=== PATIENT | female | born 1980 | race Caucasian/White ===

== ENCOUNTER 2022-03-21 12:39 | Outpatient (CLI) | payer BC, SELFPAY ==
--- NOTE | 2022-03-21 13:00 | CRLHL7_ITS ---
For Patients: As a result of the Century Cures Act, medical imaging exams and procedure reports are released immediately into your electronic medical record. You may view this report before your referring provider. If you have questions, please contact your health care provider. INDICATION: Pelvic pain, uterine fibroids. TECHNIQUE: Ultrasound pelvis transvaginal for better assessment or to better visualize the endometrium. Real-time sonographic images with grayscale and color Doppler images. COMPARISON: None. FINDINGS: Uterus: 8.4 x 7.0 x 5.5 cm cm. Normal echotexture of the myometrium. Superior anterior right subserosal uterine mass measuring 2.5 x 1.8 x 1.6 cm. Mid posterior left uterine subserosal mass measures 2.8 x 2.5 x 2.5 cm. Endometrium: Transvaginal imaging was performed to better evaluate the endometrium. Endometrial thickness measures 6 mm. No sign of endometrial mass or fluid. Right ovary measures 3.1 x 2.1 x 1.8 cm and left ovary measures 3.8 x 2.4 x 2.3 cm. No ovarian or adnexal masses. Normal arterial and venous blood flow is demonstrated in both ovaries. Cul-de-sac: No significant free fluid. IMPRESSION: 1. Two subserosal uterine masses most likely fibroids. 2. No other finding to account for pelvic pain. Dictated by Aleksandar Wang MD @ 03/23/2022 8:19:31 PM (Electronically Signed)
== END 2022-03-21 12:40 | disposition home or self-care (01) ==
PROVIDERS: PCP Student in an Organized Health Care Education/Training Program; Visit Provider Obstetrics & Gynecology
DX: R10.2 Pelvic and perineal pain (principal); R19.00 Intra-abdominal and pelvic swelling, mass and lump, unspecified site; D25.9 Leiomyoma of uterus, unspecified
CPT/HCPCS: 76830; 76856